=== PATIENT | female | born 1985 | race American Indian/Alaskan Native ===

== ENCOUNTER 2018-02-13 19:50 | Emergency (ER) | payer SELFPAY ==
[2018-02-13] MEDS ORDERED: ZOFRAN ONE (20:47)
[2018-02-13] MEDS ORDERED: ZOFRAN IM ONE (20:55)
[2018-02-13 21:15] LABS: Basophils # (Auto) 0.1 K/mm3 (0.0-0.1); Basophils % (Auto) 0.6 % (0.0-1.8); Eosinophils # (Auto) 0.2 K/mm3 (0.0-0.4); Eosinophils % (Auto) 1.8 % (0.0-4.3); Hematocrit 38.4 % (30.3-42.9); Hemoglobin 12.8 gm/dl (10.1-14.3); Lymphocytes # (Auto) 2.4 K/mm3 (1.2-5.4); Lymphocytes % (Auto) 28.3 % (13.4-35.0); Mean Corpuscular HGB Conc 34 % (30-34); Mean Corpuscular Hemoglobin 29 pg (28-32); Mean Corpuscular Volume 86 fl (79-97); Monocytes # (Auto) 0.7 K/mm3 (0.0-0.8); Monocytes % (Auto) 7.9 % (0.0-7.3); Platelet Count 216 K/mm3 (140-440); Red Blood Count 4.45 M/mm3 (3.65-5.03); Red Cell Distribution Width 13.8 % (13.2-15.2)
[2018-02-13 21:29] LABS: BUN/Creatinine Ratio 20; Blood Urea Nitrogen 8 mg/dL (7-17); Calcium 8.7 mg/dL (8.4-10.2); Hemolysis Index 2
--- NOTE | 2018-02-13 23:00 | Ultrasound Report ---
FINAL REPORT PROCEDURE: US OB > = 14 WEEKS FETUS TECHNIQUE: Real-time transabdominal sonography of the uterus, placenta, amniotic fluid, adnexa, and fetus was performed with image documentation. Measurements were obtained to determine age/size. M-mode Doppler was used to document heartbeat. CPT 41078 HISTORY: Left flank pain COMPARISON: No prior studies are available for comparison. FINDINGS: ADDITIONAL GESTATION: None. GENERAL: IUP: Single living intrauterine . Position: Breech Placental position: , without previa. Amniotic fluid volume: Normal. MATERNAL: Uterus: Within normal limits. Cervical length: 3.9 cm. Internal Os: Closed. FETUS: Heart rate and rhythm: 166 beats per minute, regular. MEASUREMENTS: BPD: 2.8 centimeters corresponding to 15 weeks and 1 day HC: 10.6 centimeters corresponding to 15 weeks and 0 days AC: 8.6 centimeters corresponding to 15 weeks and 0 days FL: 1.6 centimeters corresponding to 14 weeks and 4 days. Mean Gestational Age (composite criteria): 15 weeks and 0 days Ratio biometry: Normal. Estimated Weight: 107 grams. Estimated Due Date : 08/07/2018 IMPRESSION: Single intrauterine gestation at 15 weeks and 0 days. Estimated due date: 08/07/2018.
[2018-02-14 00:17] LABS: Bacteria,Urine 1+ /HPF (Negative); Bilirubin,Urine NEG (Negative); Blood,Urine NEG (Negative); Color,Urine Yellow (Yellow); Mucus,Urine 3+ /HPF; Urobilinogen,Urine < 2.0 mg/dL (<2.0)
[2018-02-14 01:34] VITALS: BP 90/62
[2018-02-14] MEDS ORDERED: KEFLEX PO ONE (02:35)
[2018-02-14] MEDS ORDERED: ZOFRAN ODT PO ONE (02:35)
--- NOTE | 2018-02-14 02:39 | Emergency Department Report ---
ED General Adult HPI - General Chief complaint: Nausea/Vomiting/Diarrhea Stated complaint: LOWER BACK PAIN, DIARRHEA Time Seen by Provider: 02/14/18 02:29 Source: patient Mode of arrival: Ambulatory Limitations: No Limitations - History of Present Illness Initial comments: 32-year-old female, 15 weeks , recently moved here from [place], presents with 2 day history of left flank and back pain, along with a sense of feverishness, as well as diarrhea several times per day, all of which typical of when she's had urinary tract infections. Patient is multigravida, with past obstetric history being G 13, P5, aborta 7, with prior examinations in [facility], where she lived, but had previously moved from, in which examination had shown a heartbeat, but he does could not be definitively identified. Since she had moved here, she has not qualified yet for Medicaid, which is at process, and does not have a regular terrazzo helper. When she became symptomatic, she came here for care, and during wait for examination by myself, has had ultrasound, as well as medication for nausea with ondansetron, which has relieved her symptomatology. She has been able to keep down fluids, and nausea has subsided. She has no difficulty breathing, no chest pain, and no other abdominal symptoms. - Related Data Home Medications Medication Instructions Recorded Confirmed Last Taken Dha 1 tab PO DAILY 02/13/18 02/13/18 Unknown Previous Rx's Medication Instructions Recorded Last Taken Type Acetaminophen/Codeine [Tylenol 1 tab PO Q6H PRN #10 tab 02/14/18 Unknown Rx /Codeine # 3 tab] Cephalexin [Keflex] 500 mg PO Q6HR #28 capsule 02/14/18 Unknown Rx Ondansetron [Zofran ODT TAB] 8 mg PO Q8HR PRN #10 tab.rapdis 02/14/18 Unknown Rx Allergies Allergy/AdvReac Type Severity Reaction Status Date / Time No Known Allergies Allergy Verified 02/13/18 20:52 ED Review of Systems ROS: Stated complaint: LOWER BACK PAIN, DIARRHEA Other details as noted in HPI ED Past Medical Hx - Past Medical History Additional medical history: Kidney Infections, Right Ovarian Cyst - Surgical History Hx Cholecystectomy: Yes Additional Surgical History: Ear Tubes, Tonsilectomy - Social History Smoking Status: Never Smoker Substance Use Type: None - Medications Home Medications: Home Medications Medication Instructions Recorded Confirmed Last Taken Type Dha 1 tab PO DAILY 02/13/18 02/13/18 Unknown History Acetaminophen/Codeine [Tylenol 1 tab PO Q6H PRN #10 tab 02/14/18 Unknown Rx /Codeine # 3 tab] Cephalexin [Keflex] 500 mg PO Q6HR #28 capsule 02/14/18 Unknown Rx Ondansetron [Zofran ODT TAB] 8 mg PO Q8HR PRN #10 tab.rapdis 02/14/18 Unknown Rx ED Physical Exam - General Limitations: No Limitations - Back Exam Back exam: Present: tenderness, CVA tenderness (L). Absent: vertebral tenderness, rash noted (left flank and left costovertebral area) ED Course Vital Signs 02/13/18 02/14/18 20:17 01:32 Temperature 36.9 C 36.9 C Pulse Rate 91 H 72 Respiratory 18 18 Rate Blood Pressure 100/68 Blood Pressure 90/62 [Left] O2 Sat by Pulse 99 100 Oximetry ED Medical Decision Making - Lab Data Result diagrams: 02/13/18 20:59 02/13/18 20:59 - Radiology Data Radiology results: report reviewed Transvaginal ultrasound shows presence of a single viable living intrauterine , age 15 weeks, 0 days, estimated date, 08/07/2018, heart tones at 166 bpm, with no other intrapelvic abnormalities. - Medical Decision Making Patient has findings of an acute urinary tract infection, has had nausea along with it and some diarrhea, with stable laboratory evaluation otherwise. She is tolerating fluids, stable for discharge home, will be treated with Keflex in the interim, will be given referral for JUNIOR ANALYST in the interim. We will also treat mild discomfort with codeine, and any remaining nausea with ondansetron. Critical Care Time: No Critical care attestation.: If time is entered above; I have spent that time in minutes in the direct care of this critically ill patient, excluding procedure time. ED Disposition Clinical Impression: Urinary tract infection affecting Intrauterine normal Qualifiers: Trimester: second trimester Qualified Code(s): Z34.92 - Encounter for supervision of normal , unspecified, second trimester Disposition: - TO HOME OR SELFCARE Is pt being admited?: No Does the pt Need Aspirin: No Condition: Stable Instructions: Urinary Tract Infection in Women (ED), Dehydration (ED), (ED) Additional Instructions: Take Keflex 4 times daily for the next week. We have prescribed ondansetron which you can take up to 3 times a day for any remaining nausea. Tylenol with Codeine to be taken for pain, up to 4 times per day Drink plenty of fluids to maintain hydration, and take extra amounts to manage any amounts that he lives with any diarrhea. Have repeat follow-up by terrazzo helper in 3 or 4 days, and we have giving a referral to a local terrazzo helper. Prescriptions: Acetaminophen/Codeine [Tylenol /Codeine # 3 tab] 1 tab PO Q6H PRN #10 tab PRN Reason: Pain, Moderate (4-6) Cephalexin [Keflex] 500 mg PO Q6HR #28 capsule Ondansetron [Zofran ODT TAB] 8 mg PO Q8HR PRN #10 tab.rapdis PRN Reason: Nausea Referrals: PRIMARY CARE, [Primary Care Provider] - 3-5 Days JEANETTE PEREZ MD [Staff Physician] - 3-5 Days Time of Disposition: 02:43
== END 2018-02-14 03:15 | disposition home or self-care (01) ==
LOC: ED 19:50
DX: O23.42 Unspecified infection of urinary tract in pregnancy, second trimester (principal); Z3A.15 15 weeks gestation of pregnancy; R10.2 Pelvic and perineal pain; Z90.49 Acquired absence of other specified parts of digestive tract; Z90.89 Acquired absence of other organs
CPT/HCPCS: 36415; 76805; 80048; 81001; 84702; 85025; 96372; 99284; J2405; Q0162

== ENCOUNTER 2018-04-26 11:05 | Outpatient (CLI) | payer MEDICAID ==
[2018-04-26] MEDS ORDERED: LACTATED RINGERS 1,000 ML IV ONE (11:38)
[2018-04-26] MEDS ORDERED: ROCEPHIN/NS 1 GM/50 ML 1 GM/50 ML BAG IV SCH (12:00)
[2018-04-26 12:01] LABS: Bilirubin,Urine NEG (Negative); Blood,Urine LG (Negative); Color,Urine Yellow (Yellow); Urobilinogen,Urine < 2.0 mg/dL (<2.0)
[2018-04-26 12:04] LABS: Protein,Urine >500 mg/dL (Negative); RBC,Urine > 182.0 /HPF (0.0-6.0); WBC,Urine > 182.0 /HPF (0.0-6.0)
[2018-04-26 13:30] LABS: Basophils # (Auto) 0.1 K/mm3 (0.0-0.1); Basophils % (Auto) 0.8 % (0.0-1.8); Eosinophils # (Auto) 0.1 K/mm3 (0.0-0.4); Eosinophils % (Auto) 1.2 % (0.0-4.3); Hematocrit 36.3 % (30.3-42.9); Lymphocytes # (Auto) 1.7 K/mm3 (1.2-5.4); Mean Corpuscular HGB Conc 33 % (30-34); Mean Corpuscular Hemoglobin 29 pg (28-32); Mean Corpuscular Volume 87 fl (79-97); Monocytes # (Auto) 0.8 K/mm3 (0.0-0.8); Monocytes % (Auto) 6.6 % (0.0-7.3); Platelet Count 191 K/mm3 (140-440); Red Blood Count 4.18 M/mm3 (3.65-5.03); Red Cell Distribution Width 13.5 % (13.2-15.2)
[2018-04-26 13:46] LABS: Alanine Aminotransferase 10 units/L (7-56); Albumin 3.2 g/dL (3.9-5); BUN/Creatinine Ratio 14; Blood Urea Nitrogen 7 mg/dL (7-17); Calcium 8.7 mg/dL (8.4-10.2); Hemolysis Index 6
--- NOTE | 2018-04-26 13:51 | History and Physical Report ---
History of Present Illness Date of examination: 04/26/18 Date of admission: Triage patient 04/26/2018 Chief complaint: Pelvic pain and pressure. History of present illness: 33 year old female presents to L&D triage complaining of pelvic pain and pressure for several days which became worse last night. Patient reports this morning she had mucous discharge with small amount of vaginal bleeding when she wiped. Patient denies leaking of fluid. Patient reports last IC was over 48 hours ago. She denies constant abdominal pain. She denies regular contractions. She denies falls or abdominal trauma. Patient reports the baby is moving well. Patient states she has been receiving care at [facility] in [place], [place]. No records are available today. Pt. reports her EDC is and her EGA is 25 weeks, 2 days. Patient states she has also been seeing [facility] during this and has been receiving weekly progesterone injections through [facility] since 21-22 weeks gestation. Patient reports she is taking daily Macrobid 100 mg for UTI prevention; she reports a history of recurrent UTI. Past medical history: Negative. Past surgical history: cholecystectomy, T&A, ear tubes. [facility] history: . 3 previous spontaneous vaginal births (2004, 2009, and 2015). 2 previous term vaginal births. 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 She also reports history of LSIL pap in the past; states she has had cryosurgery in the past. Pt. reports remote history of chlamydia which was treated and cured. Social history: Nonsmoker, nondrinker, denies use of drugs. Pt. denies depressions. She reports increased stress. She states she feels safe in her current relationship. Denies any history of abuse. Family history: hypertension (multiple family members), stroke (mother, MGM), OK (mother), kidney failure (mother), bipolar disorder (mother), breast cancer ( aunt, mother, MGM). Past History Past Medical History: other (frequent/recurrent UTI) Past Surgical History: cholecystectomy, tonsillectomy, other (ear tubes) [facility] [employer] [facility] History: abnormal PAP smear, chlamydia, herpes. denies: gonorrhea, hepatitis B, hepatitis C, HIV, syphilis Family/Genetic History: diabetes, heart disease, hypertension, stroke. denies: congenital heart defect, mental retardation Social history: single, full code. denies: smoking, alcohol abuse, prescription drug abuse, IV drug use - Obstetrical History Expected Date of Delivery: 08/07/18 Actual Gestation: 25 Week(s) 2 Day(s) : 13 Para: 5 Hx # Term Pregnancies: 2 Number of Pregnancies: 4 Spontaneous Abortions: 7 Induced : 0 Number of Living Children: 5 Medications and Allergies Allergies Allergy/AdvReac Type Severity Reaction Status Date / Time No Known Allergies Allergy Verified 02/13/18 20:52 Home Medications Medication Instructions Recorded Confirmed Last Taken Type Dha 1 tab PO DAILY 02/13/18 02/13/18 Unknown History Acetaminophen/Codeine [Tylenol 1 tab PO Q6H PRN #10 tab 02/14/18 Unknown Rx /Codeine # 3 tab] Ondansetron [Zofran ODT TAB] 8 mg PO Q8HR PRN #10 tab.rapdis 02/14/18 Unknown Rx cephALEXin [Keflex] 500 mg PO Q6HR #28 capsule 02/14/18 Unknown Rx Active Meds: Active Medications Betamethasone Acet/Betameth SodPhos (Celestone Soluspan) 12 mg IM Q24H GHADA Last Admin: 04/26/18 13:33 Dose: 12 mg Ceftriaxone Sodium (Rocephin/Ns 1 Gm/50 Ml) 1 gm in 50 mls @ 100 mls/hr IV Q12H GHADA; Protocol Last Admin: 04/26/18 13:07 Dose: 100 mls/hr Review of Systems All systems: negative (pelvic pressure and pain) - Vital Signs Vital signs: Vital Signs Pulse Pulse Ox 91 H 99 04/26/18 11:25 04/26/18 11:25 Temp Pulse Resp BP Pulse Ox 97.8 F 82 16 102/67 100 04/26/18 13:17 04/26/18 13:18 04/26/18 13:17 04/26/18 13:18 04/26/18 13:18 - Physical Exam Cardiovascular: Regular rate, Normal S1, Normal S2 Lungs: Positive: Clear to auscultation Abdomen: Positive: normal appearance, soft. Negative: distention, tenderness, guarding, rigidity Genitourinary (Female): Positive: normal external genitalia, normal perenium. Negative: perineal/vulvar lesions Vagina: Positive: normal moisture Cervix: Positive: other (FT/20/high/anterior/soft) Uterus: Positive: enlarged. Negative: tender Extremities: Positive: normal. Negative: tenderness, edema - Obstetrical FHR: category 1 (appropriate for gestational age) Uterine Contraction Monitor Mode: External Cervical Dilatation: 0 Cervical Effacement Percentage: 20 station: high Uterine Contraction Frequency (min): unable to determine Results Result Diagrams: 04/26/18 13:04/26/18 13:06 Abnormal lab results 04/26/18 04/26/18 04/26/18 Range/Units 11:35 13:06 13:09 WBC 11.6 H (4.5-11.0) K/mm3 Seg Neutrophils % 76.4 H (40.0-70.0) % Seg Neutrophils # 8.8 H (1.8-7.7) K/mm3 Creatinine 0.5 L (0.7-1.2) mg/dL Total Protein 6.1 L (6.3-8.2) g/dL Albumin 3.2 L (3.9-5) g/dL Urine WBC (Auto) > 182.0 H (0.0-6.0) /HPF FFN positive. WBC 11.6. Urine WBC >182. Urine RBC >182. Assessment and Plan A: at 25 weeks, 2 days gestation. Pelvic pain and pressure. Positive fibronectin. History of times 3. Urinary tract infection. P: IV hydration. EFM. IV Rocephin. Urinalysis, urine culture, UDS, CBC, CMP. Ultrasound. Course of Celestone. Consulted with Dr. Duke re: this patient and interventions taken. Dr. Duke to also evaluate patient and determine disposition.
[2018-04-26] MEDS ORDERED: CELESTONE SOLUSPAN IM SCH (14:00)
--- NOTE | 2018-04-26 14:17 | Ultrasound Report ---
FINAL REPORT EXAM: US OB FOLLOW UP HISTORY: vaginal bleeding assess gestational age, placenta, presentation, cervical length, 13, para 5 TECHNIQUE: Obstetrical sonographic imaging was performed Comparison: 02/13/2018 at which time a single live intrauterine gestation in breech presentation at 15 weeks 0 days was identified FINDINGS: Images demonstrate single live intrauterine gestation in cephalic presentation. Anterior placenta grade 0 without previa. heart rate measures 143 beats per minute. Cervical length measures 3 centimeters. Calculated KAITLIN 18.5 centimeters. estimated gestational age as follows: Biparietal diameter 25 weeks 4 days Head circumference 25 weeks 1 day Abdominal circumference 24 weeks 5 days Femur length 25 weeks 2 days Average sonographic gestational age is 25 weeks 1 day. Estimated due date by today's ultrasound is 08/08/2018. HC/AC ratio 1.14 Cephalic index 79.7. Estimated weight 766 grams which is 30th percentile per the Hadlock criteria. No definite evidence of abruption. Both the head and hand are present at the cervix. Note is made is that ultrasound has low sensitivity for abruption. IMPRESSION: Single live intrauterine gestation at 25 weeks 1 day, estimated due date 08/08/2018. Cephalic presentation with a single hand at the endocervix. No evidence for subchorionic hemorrhage or abruption. Cervical length measures 3 centimeters. Anterior placenta grade 0 without previa. Normal KAITLIN 18.5 centimeters.
--- NOTE | 2018-04-26 14:20 | Ultrasound Report ---
FINAL REPORT EXAM: US OB TRANSVAGINAL HISTORY: Measure cervical length vaginal bleeding TECHNIQUE: Obstetrical sonographic imaging was performed Comparison: 02/13/2018 at which time a single live intrauterine gestation at 15 weeks 0 days was identified FINDINGS: Images demonstrate single live intrauterine gestation in cephalic presentation. Anterior placenta grade 0 without previa. heart rate measures 143 beats per minute. Cervical length measures 3 centimeters. Calculated KAITLIN 18.5 centimeters. estimated gestational age as follows: Biparietal diameter 25 weeks 4 days Head circumference 25 weeks 1 day Abdominal circumference 24 weeks 5 days Femur length 25 weeks 2 days Average sonographic gestational age is 25 weeks 1 day. Estimated due date by today's ultrasound is 08/08/2018. HC/AC ratio 1.14 Cephalic index 79.7. Estimated weight 766 grams which is 30th percentile per the Hadlock criteria. No definite evidence of abruption. Both the head and hand are present at the cervix. Note is made is that ultrasound has low sensitivity for abruption. IMPRESSION: Single live intrauterine gestation at 25 weeks 1 day, estimated due date 08/08/2018. Cephalic presentation with a single hand at the endocervix. No evidence for subchorionic hemorrhage or abruption. Cervical length measures 3 centimeters. Anterior placenta grade 0 without previa. Normal KAITLIN 18.5 centimeters.
[2018-04-26] MEDS ORDERED: BRETHINE SUB-Q SCH (16:00)
[2018-04-26] MEDS ORDERED: LACTATED RINGERS 500 ML IV ONE (16:00)
[2018-04-26] MEDS ORDERED: MAGNESIUM SULFATE 40GM/1000ML 40 GM/1,000 ML BAG IV ONE (17:39)
[2018-04-26] MEDS ORDERED: MAGNESIUM SULFATE 4GM/100ML 4 GM/100 ML BAG IV ONE ×2 (17:40→18:00)
[2018-04-26] MEDS ORDERED: MAGNESIUM SULFATE 40GM/1000ML 40 GM/1,000 ML BAG IV SCH (18:00)
[2018-04-26 18:31] VITALS: BP 91/61
== END 2018-04-26 19:00 | disposition other institution (70) ==
LOC: TRG 11:05
PROVIDERS: ATTEND Obstetrics & Gynecology
DX: O47.02 False labor before 37 completed weeks of gestation, second trimester (principal); Z3A.25 25 weeks gestation of pregnancy; Z90.49 Acquired absence of other specified parts of digestive tract
CPT/HCPCS: 36415; 59025; 76816; 76817; 80053; 81001; 82731; 85025; 87086; 96360; 96361; 96372; J0696; J0702; J3105; J3475; J7120

== ENCOUNTER 2018-09-23 07:50 | Day surgery (SDC) | payer MEDICAID ==
[~2018-09-23 07:50] MED LIST: MARCAINE 0.5% INFILTRATI ONE
[2018-09-23] MEDS ORDERED: LACTATED RINGERS 1,000 ML IV SCH (08:13)
[2018-09-23] MEDS ORDERED: VERSED ONE (08:28)
[2018-09-23] MEDS ORDERED: TYLENOL ONE (08:28)
[2018-09-23] MEDS ORDERED: NEURONTIN ONE (08:28)
[2018-09-23] MEDS ORDERED: MARCAINE 0.5% INFILTRATI ONE ×2 (09:05→11:02)
--- NOTE | 2018-09-23 09:10 | Anesthesia Consultation ---
Anesthesia Consult and Med Hx Date of service: 09/23/18 - Airway Anesthetic Teeth Evaluation: Good ROM Head & Neck: Adequate Mental/Hyoid Distance: Adequate Mallampati Class: Class I Intubation Access Assessment: Good - Pulmonary Exam CTA: Yes - Cardiac Exam Cardiac Exam: RRR - Pre-Operative Health Status ASA Pre-Surgery Classification: ASA1 Proposed Anesthetic Plan: General - Pulmonary Hx Smoking: No Hx Asthma: No COPD: No Hx Pneumonia: No Hx Sleep Apnea: No (RASHEEDA PRE SCREEN NEGATIVE) - Cardiovascular System Hx Hypertension: No - Central Nervous System Hx Seizures: No Hx Back Pain: Yes Hx Psychiatric Problems: No - Endocrine Hx Renal Disease: No Hx End Stage Renal Disease: No Hx Hypothyroidism: Yes ( CHILD- IMPROVED ADULT- NO MEDS) Hx Hyperthyroidism: No - Hematic Hx Anemia: No Hx Sickle Cell Disease: No - Other Systems Hx Alcohol Use: No Hx Cancer: No - Additional Comments Anesthesia Medical History Comments: otherwise healthy mutiparous 33 y.o.f. scheduled for tubal ligation. preop gabapentin, celebrex. no previous PONV
--- NOTE | 2018-09-23 09:11 | Anesthesia Day of Surgery ---
Anesthesia Day of Surgery - Day of Surgery Patient Examined: Yes Patient H&P Reviewed: Yes Patient is NPO: Yes Alfonso's Test: N/A
[2018-09-23] MEDS ORDERED: XYLOCAINE CARDIAC IV ONE (09:30)
[2018-09-23] MEDS ORDERED: DIPRIVAN 10 MG/ML IV ONE (09:31)
[2018-09-23] MEDS ORDERED: SUBLIMAZE ONE (09:31)
[2018-09-23] MEDS ORDERED: XYLOCAINE MPF 2% ONE (09:46)
[2018-09-23] MEDS ORDERED: ZEMURON IV ONE ×2 (09:47→11:09)
[2018-09-23] MEDS ORDERED: NEO SYNEPHRINE/NS Syringe(OR USE) IV ONE (10:02)
[2018-09-23] MEDS ORDERED: LACTATED RINGERS 1,000 ML ONE (11:09)
[2018-09-23] MEDS ORDERED: ROBINUL ONE (11:10)
[2018-09-23] MEDS ORDERED: BLOXIVERZ ONE (11:10)
[2018-09-23] MEDS ORDERED: TORADOL ONE (11:12)
[2018-09-23] MEDS ORDERED: ZOFRAN ONE (11:12)
--- NOTE | 2018-09-23 11:21 | Operative Report ---
Operative Report Operative Report: Preoperative diagnosis: Multiparity, desires permanent sterilization. Postoperative diagnosis: Same as preoperative diagnosis. Procedure: Laparoscopic tubal ligation. Surgeon: Dr. Bertrand District [address] Reporter: none Anesthesia: general EBL: negligible IVF: RL 1 liter Complications: none Intraoperative findings: Normal uterus, fallopian tubes and ovaries bilaterally. Procedure details: Risks, benefits, and alternatives of the procedure were discussed in detail with the patient which included but not limited to risk of infection, hemorrhage requiring blood transfusion, injury to the bowel or bladder and blood vessels, failure of the tubal ligation to prevent which can result in unwanted pregnancies in the future. The patient expressed understanding, her questions were answered, and she gave informed consent. The patient was taken to the operating room with an IV fluid using Ringer's lactate. In the operating room, she was placed in a dorsal supine position and given general anesthesia. She was then placed on the stirrups in a dorsal lithotomy position. The bladder was drained with straight catheter. The perineum, vagina, cervix, and abdomen were washed and she was prepared and draped in usual sterile fashion. Examination under anesthesia revealed normal external genitalia, vagina, cervix, the uterus was 8-week size, anteverted and mobile, the adnexae were nonpalpable. A bivalve speculum was placed in the vagina and the anterior LEEP of the cervix was grasped with a single-tooth tenaculum. A HUMI uterine manipulator was advanced into the uterine cavity to provide a means of manipulating the uterus and the procedure. The speculum and tenaculum were then removed. Attention was then turned to the patient's abdomen where a 5 mm skin incision was made in the infraumbilical fold. The Veress needle was introduced into the peritoneal cavity while tenting the abdominal wall. Intraperitoneal placement was confirmed by using a water-filled syringe and by noticing a drop in the intra-abdominal pressure with CO2 gas insufflation. The trocar and sleeves were then advanced without difficulty into the abdomen where intraperitoneal placement was confirmed using laparoscope. Pneumoperitoneum was achieved with 3.5 L of CO2 gas. A second 5 mm skin incision was made in the left lower quadrant and a 5 mm trocar and sleeves were then advanced into the abdominal cavity under direct visualization with the laparoscope. A quick survey of the anatomy revealed a normal uterus, fallopian tubes, and ovaries bilaterally. The left fallopian tube was grasped with Voyant bipolar forceps, cauterized at 2 locations, and transected . A similar procedure was done with the right f allopian tube which was cauterized and transected in a similar fashion. Good hemostasis was confirmed. The ports were then opened to release to CO2 gas from the abdomen. The instruments were then removed. The ports were closed with 3.0 vicryl sutures. Steri-Strip and Tegaderm were placed. The HUMI uterine manipulator was then removed from the uterine cavity. The counts of laps, needles, sponges, and instruments were correct 2. The patient tolerated the procedure well. She was awakened from anesthesia and taken to the recovery room in a stable condition.
[2018-09-23] MEDS ORDERED: ZOFRAN IV PRN (11:34)
[2018-09-23] MEDS: DILAUDID IV PRN ×2 (11:34→11:41)
[2018-09-23] MEDS ORDERED: DILAUDID ONE ×2 (11:34→11:53)
[2018-09-23] MEDS ORDERED: SUBLIMAZE IV PRN (11:35)
[2018-09-23] MEDS ORDERED: PERCOCET 5/325 PO ONE (12:15)
[2018-09-23 12:23] VITALS: BP 100/70
== END 2018-09-23 12:52 | disposition home or self-care (01) ==
LOC: OR 07:50
PROVIDERS: ATTEND Obstetrics & Gynecology
DX: Z30.2 Encounter for sterilization (principal); E03.9 Hypothyroidism, unspecified; Z79.899 Other long term (current) drug therapy; Z98.890 Other specified postprocedural states; Z90.49 Acquired absence of other specified parts of digestive tract; Z87.440 Personal history of urinary (tract) infections; Z80.8 Family history of malignant neoplasm of other organs or systems; Z80.3 Family history of malignant neoplasm of breast; Z82.49 Family history of ischemic heart disease and other diseases of the circulatory system
CPT/HCPCS: 58670; 81025; J1170; J1885; J2250; J2370; J2405; J2704; J2710; J3010; J7120; J2001

== ENCOUNTER 2022-04-20 16:56 | Emergency (ER) | payer MEDICAID, OTHER ==
[2022-04-20 18:41] VITALS: BP 114/87
[2022-04-20 21:04] LABS: Bilirubin,Urine NEG (Negative); Blood,Urine NEG (Negative); Color,Urine Yellow (Yellow); Protein,Urine <15 mg/dL mg/dL (Negative); Urobilinogen,Urine < 2 mg/dL (<2.0)
[2022-04-20 21:12] LABS: Bacteria,Urine 1+ /HPF (Negative); Mucus,Urine FEW /HPF
[2022-04-20 21:20] LABS: HCG Qualitative,Urine Negative (Negative)
[2022-04-20] MEDS ORDERED: HYDROcodone/ACETAMINOPHEN 5-325 MG TAB PO ONE (21:27)
[2022-04-20] MEDS ORDERED: ONDANSETRON 4 MG ODT TAB PO ONE (21:27)
[2022-04-20] MEDS ORDERED: KETOROLAC 10 MG TAB PO ONE (21:27)
--- NOTE | 2022-04-20 21:34 | Emergency Department Report ---
ED Female HPI - General Chief complaint: Urogenital-Female Stated complaint: KIDNEY INFECTION Time Seen by Provider: 04/20/22 20:49 Source: patient Mode of arrival: Ambulatory Limitations: No Limitations - History of Present Illness Initial comments: 37-year-old female presenting with possible kidney infection. Patient describes pain in her left flank area which has been going on since intermittently for the past 3 weeks. States she has a history of recurring kidney infections as before she might have an infection at this time, as evidenced by urine having a foul odor, discolored, and it seems like it has "ammonia ". Describes pain in her left flank, radiates down to her left leg, causing intermittent tingling in her left leg. Pain does not radiate to the abdomen, or groin area, she reports nausea without vomiting, no fever or chills, no diarrhea, no chest pain, no shortness of breath, no hematuria, no vaginal discharge,. She denies being , last menstrual period was 03/25/2022, history of tubal ligation Are you Now?: No - Related Data Home Medications Medication Instructions Recorded Confirmed Last Taken Dha 1 tab PO DAILY 02/13/18 09/14/18 07/12/18 21:00 Previous Rx's Medication Instructions Recorded Last Taken Type Cyclobenzaprine [Flexeril] 10 mg PO TID PRN #30 04/20/22 Unknown Rx Ibuprofen [Motrin 800 MG tab] 800 mg PO Q8HR PRN #30 tablet 04/20/22 Unknown Rx Allergies Allergy/AdvReac Type Severity Reaction Status Date / Time No Known Allergies Allergy Verified 02/13/18 20:52 ED Review of Systems ROS: Stated complaint: KIDNEY INFECTION Other details as noted in HPI Constitutional: see HPI ENT: as per HPI Respiratory: see HPI Cardiovascular: denies: chest pain, palpitations Endocrine: denies: excessive sweating, intolerance to cold, intolerance to heat Gastrointestinal: nausea. denies: abdominal pain, vomiting, diarrhea, constipation Genitourinary: denies: urgency, dysuria, frequency, hematuria, discharge, abnormal menses Musculoskeletal: back pain Skin: denies: rash Neurological: denies: headache, weakness, numbness Psychiatric: denies: anxiety, homicidal thoughts, suicidal thoughts ED Past Medical Hx - Past Medical History Previous Medical History?: Yes Hx Hypertension: No Hx Congestive Heart Failure: No Hx Diabetes: No Hx Deep Vein Thrombosis: No Hx Renal Disease: No Hx Sickle Cell Disease: No Hx Seizures: No Hx Asthma: No Hx COPD: No Hx HIV: No Additional medical history: Kidney Infections, Right Ovarian Cyst - Surgical History Past Surgical History?: Yes Hx Cholecystectomy: Yes Additional Surgical History: Ear Tubes, Tonsilectomy - Social History Smoking Status: Never Smoker - Medications Home Medications: Home Medications Medication Instructions Recorded Confirmed Last Taken Type Dha 1 tab PO DAILY 02/13/18 09/14/18 07/12/18 21:00 History Cyclobenzaprine [Flexeril] 10 mg PO TID PRN #30 04/20/22 Unknown Rx Ibuprofen [Motrin 800 MG tab] 800 mg PO Q8HR PRN #30 tablet 04/20/22 Unknown Rx ED Physical Exam - General Limitations: No Limitations General appearance: alert, in no apparent distress - Head Head exam: Present: atraumatic - Eye Eye exam: Present: normal appearance Pupils: Present: normal accommodation - ENT ENT exam: Present: normal exam, normal orophraynx - Neck Neck exam: Present: normal inspection. Absent: tenderness - Respiratory Respiratory exam: Present: normal lung sounds bilaterally. Absent: respiratory distress - Cardiovascular Cardiovascular Exam: Present: regular rate, normal rhythm - GI/Abdominal GI/Abdominal exam: Present: soft. Absent: distended, tenderness - Extremities Exam Extremities exam: Present: normal inspection, full ROM. Absent: tenderness, normal capillary refill - Back Exam Back exam: Present: normal inspection, full ROM, CVA tenderness (L), paraspinal tenderness - Neurological Exam Neurological exam: Present: alert, oriented X3, CN II-XII intact, normal gait. Absent: motor sensory deficit - Psychiatric Psychiatric exam: Present: normal affect, normal mood - Skin Skin exam: Present: warm, dry, intact, normal color ED Course Vital Signs 04/20/22 18:40 Temperature 98.6 F Pulse Rate 82 Respiratory 20 Rate Blood Pressure 114/87 [Right] O2 Sat by Pulse 99 Oximetry ED Medical Decision Making - Medical Decision Making Differential diagnosis includes pyelonephritis, kidney stone, musculoskeletal pain, lumbar radiculopathy acute cystitis, ectopic , diverticulitis, diverticulosis, appendicitis, .37-year-old female presenting with possible kidney infection. Patient describes pain in her left flank area which has been going on since intermittently for the past 3 weeks. States she has a history of recurring kidney infections as before she might have an infection at this time, as evidenced by urine having a foul odor, discolored, and it seems like it has "ammonia ". Describes pain in her left flank, radiates down to her left leg, causing intermittent tingling in her left leg. Pain does not radiate to the abdomen, or groin area, she reports nausea without vomiting, no fever or chills, no diarrhea, no chest pain, no shortness of breath, no hematuria. She denies being , last menstrual period was 03/25/2022, history of tubal ligation Labs average reassuring, no signs of an acute kidney infection, Urinalysis i 1+ bacteria, 3 WBCs, 6+ epithelial cells, most likely contaminated negative nitrates negative leukocytes. Encourage patient to follow-up, await urine culture, discharged home with NSAIDs, muscle relaxant, increase oral fluid intake. Patient remained stable nontoxic-appearing, afebrile, ambulating steadily without assistance. Gone over ED findings with patient as well as plan for follow-up. Also discussed return precautions with patient, all questions and concerns addressed. Patient is stable to be discharged follow-up outpatient. Audio voice dictation device used, hence the chart might contain some dictation errors, mispronunciations, wrong spelling and wrong verbiage. Critical care attestation.: If time is entered above; I have spent that time in minutes in the direct care of this critically ill patient, excluding procedure time. ED Disposition Clinical Impression: Flank pain, Radicular pain of lumbosacral region Disposition: HOME / SELF CARE / HOMELESS Is pt being admited?: No Does the pt Need Aspirin: No Condition: Stable Instructions: Flank Pain, Adult, [id number] Prescriptions: Cyclobenzaprine [Flexeril] 10 mg PO TID PRN #30 PRN Reason: Muscle Spasm Ibuprofen [Motrin 800 MG tab] 800 mg PO Q8HR PRN #30 tablet PRN Reason: Pain , Severe (7-10) Forms: Work/School Release Form(ED)
== END 2022-04-20 22:45 | disposition home or self-care (01) ==
LOC: ED 16:56
DX: R10.9 Unspecified abdominal pain (principal); M54.16 Radiculopathy, lumbar region
CPT/HCPCS: 81001; 81025; 99283; J3490; Q0162

== ENCOUNTER 2022-04-22 14:05 | Outpatient (CLI) | payer OTHER ==
--- NOTE | 2022-04-22 15:26 | XRay Report ---
XR spine lumbosacral 2-3V INDICATION / CLINICAL INFORMATION: BACK PAIN. COMPARISON: None available. FINDINGS: BONES/JOINT(S): No acute fracture or subluxation. No significant degenerative changes. No focal bone erosions or focal osteopenia to suggest inflammatory arthropathy. SOFT TISSUES: No significant abnormality. ADDITIONAL FINDINGS: None. Signer Name: Christopher Bartholomew MD Signed: 04/22/2022 3:22 PM Workstation Name: [id number]
== END 2022-04-22 14:06 | disposition home or self-care (01) ==
LOC: XRAY 14:05
PROVIDERS: ATTEND Nurse Practitioner Gerontology
DX: M54.50 Low back pain, unspecified (principal)
CPT/HCPCS: 72100